=== PATIENT | male | born 1985 | race African-American/Black ===

== ENCOUNTER 2024-08-10 12:38 | Emergency (ER) | payer OTHER ==
[~2024-08-10] VITALS: Ht 180.3 cm; Wt 77.1 kg
[2024-08-10 13:09] VITALS: PULSE 104; RESP 18; TEMP 99.5
[2024-08-10] MEDS: KETOROLAC TROMETHAMINE 30 MG/ML VIAL IV ONE ×2 (13:47→15:33)
[2024-08-10] MEDS: SODIUM CHLORIDE 0.9% 1000ML 1,000 ML IV STA (13:48)
[2024-08-10] MEDS: INSULIN REGULAR, HUMAN 100 UNIT/1 ML IV ONE (14:59)
[2024-08-10] MEDS ORDERED: IOPAMIDOL 370 MG/ML 100 ML INFUS..BTL INJ ONE (15:10)
[2024-08-10] MEDS: ACETAMINOPHEN 325 MG TAB PO ONE (15:34)
[2024-08-10] MEDS: INSULIN REGULAR, HUMAN 100 UNIT/1 ML SQ ONE (16:13)
[2024-08-10] MEDS ORDERED: DOXYCYCLINE HY100 MG PO (16:15)
[2024-08-10] MEDS ORDERED: CEFTRIAXONE 1 GM VIAL ONE (16:22)
[2024-08-10 17:54] VITALS: BP 127/65; PULSE 71; RESP 18; TEMP 98.3; O2SAT 98
== END 2024-08-10 16:45 | disposition home or self-care (01) ==
LOC: FSED 12:40
DX: R50.9 Fever, unspecified (principal); N30.90 Cystitis, unspecified without hematuria; R10.30 Lower abdominal pain, unspecified; E11.65 Type 2 diabetes mellitus with hyperglycemia
CPT/HCPCS: 36415; 74177; 80048; 80076; 82948; 85025; 99284; J0696; J1885; J7030; Q9967